=== PATIENT | female | born 1960 | race Caucasian/White ===

== ENCOUNTER 2018-08-06 15:24 | Outpatient (CLI) | payer BC ==
--- NOTE | 2018-08-06 18:13 | BD ---
Exam: DEXA Bone Density 08/06/18 HISTORY: 58-year-old postmenopausal female for screening. Lumbar Spine: BMD (g/cm2) L1 0.722 T-Score: -3.4 L2 0.688 T-Score: -3.1 L3 0.849 T-Score: -2.1 L4 0.748 T-Score: -2.8 L1-L4 0.756 T-Score: -2.6 Left Femoral Neck: 0.629 T-Score: -2.0 Total Proximal Femur: 0.953 T-Score: 0.1 Impression: Osteoporosis. This patient has between a 6 and 7 times increased risk for fracture when compared with young patients with normal bone mineral density. POS: [facility]
== END 2018-08-06 15:25 | disposition home or self-care (01) ==
LOC: BICMAMMO 15:24
PROVIDERS: ATTEND Specialist
DX: Z12.31 Encounter for screening mammogram for malignant neoplasm of breast (principal); Z00.00 Encounter for general adult medical examination without abnormal findings; Z13.820 Encounter for screening for osteoporosis; M81.0 Age-related osteoporosis without current pathological fracture; Z80.3 Family history of malignant neoplasm of breast
CPT/HCPCS: 77063; 77067; 77080

== ENCOUNTER → 2019-01-17 | Day surgery (SDC) | payer OTHER ==
[~2019-01-17] MED LIST: Zoledronic Acid/Mannitol&Water 5 MG in Premix Bag 1 BAG IVPB SCH
[2019-01-17 13:30] VITALS: BP 147/80; TEMP 98.1
== END ==
LOC: ONC/OP 11:00
PROVIDERS: ATTEND Specialist
DX: M81.0 Age-related osteoporosis without current pathological fracture (principal); Z88.6 Allergy status to analgesic agent; Z88.8 Allergy status to other drugs, medicaments and biological substances
CPT/HCPCS: 96374; J3489

== ENCOUNTER 2019-02-04 16:02 | Outpatient (CLI) | payer BC ==
--- NOTE | 2019-02-04 16:16 | RAD ---
XR Chest Pa Lat STANDARD History: Reason For Study Comparison: Cough Findings: Lungs are clear. No pneumothorax or effusion. Cardiac silhouette and mediastinal contours a re within normal limits. Impression: No acute intrathoracic abnormality.
== END 2019-02-04 16:03 | disposition home or self-care (01) ==
LOC: BICRAD 16:02
PROVIDERS: ATTEND Specialist
DX: R05 Cough (principal)
CPT/HCPCS: 71046

== ENCOUNTER 2019-06-30 15:58 | Outpatient (CLI) | payer BC ==
--- NOTE | 2019-06-30 16:28 | RAD ---
EXAM: XR Skull Min 4 View STANDARD PROVIDED CLINICAL HISTORY: Hyperostosis of skull. COMPARISON: CT facial bones on 12/16/2015. FINDINGS: The osseous structures have a normal appearance. No suspicious lytic or sclerotic osseous lesions are seen. No fracture is identified. No exostosis is seen involving the skull. Visualized paranasal sinuses have a normal appearance. IMPRESSION: No acute osseous abnormality.
== END 2019-06-30 15:59 | disposition home or self-care (01) ==
LOC: BICRAD 15:58
PROVIDERS: ATTEND Specialist
DX: M85.2 Hyperostosis of skull (principal)
CPT/HCPCS: 70260

== ENCOUNTER 2019-08-14 16:06 | Outpatient (CLI) | payer BC ==
--- NOTE | 2019-08-14 16:55 | MMO ---
Bilateral MAMMO Bilat Screen [facility]. CLINICAL HISTORY: Patient is 59 years old and is seen for screening. The patient has the following family history of breast cancer: sister, at age 27. The patient has no personal history of cancer. VIEWS: The views performed were: bilateral craniocaudal with tomosynthesis and bilateral mediolateral oblique with tomosynthesis. FILMS COMPARED: The present examination has been compared to prior imaging studies performed at [facility] on 04/30/2012, 09/07/2014, 06/05/2017 and 08/06/2018. This study has been interpreted with the assistance of computer-aided detection. MAMMOGRAM FINDINGS: The breasts are heterogeneously dense, which could obscure a lesion on mammography. There are no suspicious masses, suspicious calcifications, or new areas of architectural distortion. IMPRESSION: THERE IS NO MAMMOGRAPHIC EVIDENCE OF MALIGNANCY. A ROUTINE FOLLOW-UP MAMMOGRAM IN 1 YEAR IS RECOMMENDED. THE RESULTS OF THIS EXAM WERE SENT TO THE PATIENT. ACR BI-RADS Category 1 - Negative MAMMOGRAPHY NOTE: 1. A negative mammogram report should not delay a biopsy if a dominant of clinically suspicious mass is present. 2. Approximately 10% to 15% of breast cancers are not detected by mammography. 3. Adenosis and dense breasts may obscure an underlying neoplasm. Reported by: OPAL WHELAN MD Electonically Signed: [id number]
== END 2019-08-14 16:07 | disposition home or self-care (01) ==
LOC: BICMAMMO 16:06
PROVIDERS: ATTEND Specialist
DX: Z12.31 Encounter for screening mammogram for malignant neoplasm of breast (principal); Z80.3 Family history of malignant neoplasm of breast
CPT/HCPCS: 77063; 77067

== ENCOUNTER 2019-09-04 15:05 | Outpatient (CLI) | payer BC ==
--- NOTE | 2019-09-04 16:06 | RAD ---
FOUR VIEWS LEFT KNEE: 09/04/19 PROVIDED CLINICAL HISTORY: Left knee pain. FINDINGS: Comparison 08/11/14. There is no evidence for fracture or other acute osseous abnormality. Alignment appears anatomic. Summer nt spaces appear preserved. Osteophyte formation is seen about the knee. IMPRESSION: Mild left knee degenerative change. POS: [facility]
== END 2019-09-04 15:06 | disposition home or self-care (01) ==
LOC: BICRAD 15:05
PROVIDERS: ATTEND Specialist
DX: M25.562 Pain in left knee (principal); M17.12 Unilateral primary osteoarthritis, left knee

== ENCOUNTER 2019-10-01 15:32 | Outpatient (CLI) | payer BC ==
--- NOTE | 2019-10-01 16:03 | RAD ---
Left knee 2 views HISTORY: Left knee pain. Injury. FINDINGS: Mild joint space narrowing of the medial compartment. Very mild tricompartmental osteophyto sis. No acute fracture or dislocation. Small amount of fluid distends the suprapatellar bursa on the lateral view. IMPRESSION: Small joint effusion with otherwise very mild osteoarthritic changes.
--- NOTE | 2019-10-01 16:04 | RAD ---
Right knee 2 views HISTORY: Right knee pain. FINDINGS: Mild joint space narrowing medial compartment. Mild tricompartmental osteophytosis. Small a mount of fluid distends the suprapatellar bursa. No aggressive osseous erosions. IMPRESSION: Small joint effusion with otherwise mild osteoarthritic changes.
== END 2019-10-01 15:33 | disposition home or self-care (01) ==
LOC: BICRAD 15:32
PROVIDERS: ATTEND Internal Medicine Rheumatology
DX: M17.0 Bilateral primary osteoarthritis of knee (principal); M25.462 Effusion, left knee; M25.461 Effusion, right knee

== ENCOUNTER 2020-03-08 16:11 | Outpatient (CLI) | payer BC ==
--- NOTE | 2020-03-08 16:46 | BD ---
BONE DENSITOMETRY USING DEXA: Date: 03/08/2020 HISTORY: Osteoporosis. FINDINGS: Lumbar Spine: BMD (g/cm2) L1 0.748 T-Score: -2.2 Z-Score: -1.1 L2 0.772 T-Score: -2.3 Z-Score: -1.1 L3 0.839 T-Score: -2.2 Z-Score: -0.9 L4 0.729 T-Score: -3.0 Z-Score: -1.7 L1-L4 0.772 T-Score: -2.5 Z-Score: -1.2 Femoral Neck: 0.579 T-Score: -2.4 Z-Score: -1.2 Total Femur: 0.910 T-Score: -0.3 Z-Score: 0.6 There has been interval improvement of 2.1% in the bone mineral density of the lumbar spine and a red uction of 4.5% in the bone mineral density of the proximal femur since 08/06/2018. IMPRESSION: Osteoporosis. POS: [facility]
== END 2020-03-08 16:12 | disposition home or self-care (01) ==
LOC: BICRAD 16:11
PROVIDERS: ATTEND Specialist
DX: M81.0 Age-related osteoporosis without current pathological fracture (principal); M85.859 Other specified disorders of bone density and structure, unspecified thigh
CPT/HCPCS: 77080

== ENCOUNTER 2020-09-15 07:44 | Outpatient (CLI) | payer BC ==
--- NOTE | 2020-09-15 08:16 | MMO ---
Bilateral MAMMO Bilat Screen [facility]. CLINICAL HISTORY: Patient is 60 years old and is seen for screening. The patient has the following family history of breast cancer: sister, at age 27. The patient has no personal history of cancer. VIEWS: The views performed were: bilateral craniocaudal with tomosynthesis and bilateral mediolateral oblique with tomosynthesis. FILMS COMPARED: The present examination has been compared to prior imaging studies performed at [facility] on 09/07/2014, 06/05/2017, 08/06/2018 and 08/14/2019. This study has been interpreted with the assistance of computer-aided detection. MAMMOGRAM FINDINGS: There are scattered fibroglandular densities. There are no suspicious masses, suspicious calcifications, or new areas of architectural distortion. IMPRESSION: THERE IS NO MAMMOGRAPHIC EVIDENCE OF MALIGNANCY. A ROUTINE FOLLOW-UP MAMMOGRAM IN 1 YEAR IS RECOMMENDED. THE RESULTS OF THIS EXAM WERE SENT TO THE PATIENT. ACR BI-RADS Category 1 - Negative MAMMOGRAPHY NOTE: 1. A negative mammogram report should not delay a biopsy if a dominant of clinically suspicious mass is present. 2. Approximately 10% to 15% of breast cancers are not detected by mammography. 3. Adenosis and dense breasts may obscure an underlying neoplasm. Reported by: JESSENIA QUINTERO MD Electonically Signed: [id number]
== END 2020-09-15 07:45 | disposition home or self-care (01) ==
LOC: BICMAMMO 07:44
PROVIDERS: ATTEND Specialist
DX: Z12.31 Encounter for screening mammogram for malignant neoplasm of breast (principal); Z80.3 Family history of malignant neoplasm of breast
CPT/HCPCS: 77063; 77067

== ENCOUNTER 2020-12-14 15:43 | Outpatient (CLI) | payer BC | END 2020-12-14 15:44 | disposition home or self-care (01) | LOC: BICRAD 15:43 | PROVIDERS: ATTEND Specialist | DX: R68.84 Jaw pain (principal) | CPT/HCPCS: 70110 ==

== ENCOUNTER 2021-09-21 13:26 | Outpatient (CLI) | payer BC | END 2021-09-21 13:27 | disposition home or self-care (01) | LOC: BICMAMMO 13:26 | PROVIDERS: ATTEND Specialist | DX: Z12.31 Encounter for screening mammogram for malignant neoplasm of breast (principal); M81.0 Age-related osteoporosis without current pathological fracture; M85.89 Other specified disorders of bone density and structure, multiple sites; Z80.3 Family history of malignant neoplasm of breast | CPT/HCPCS: 77063; 77067; 77080 ==

== ENCOUNTER 2021-12-20 23:45 | Emergency (ER) | payer BC ==
[2021-12-21 00:08] LABS: #Basophils 0.1 thou/uL (0.0-0.2); #Eosinphils 0.3 thou/uL (0.0-0.7); #Lymphocytes 2.8 thou/uL (1.20-3.40); #Monocytes 1.4 thou/uL (0.11-0.59); #Neutrophils 7.2 thou/uL (1.40-6.50); %Basophils 0.5 % (0.0-1.0); %Eosinophils 2.8 % (0.0-10.0); %Lymphocytes 23.8 % (21.0-51.0); %Monocytes 11.7 % (0.0-10.0); %Neutrophils 61.2 % (42.0-75.0); Hemoglobin 14.3 g/dL (12.0-16.0); Mean Corpuscular HGB CONC 34.8 g/dL (32.0-36.0); Mean Corpuscular Hemoglobin 31.7 pg (27.0-31.0); Mean Corpuscular Volume 91.1 fL (78.0-98.0); Mean Platelet Volume 6.9 fL (7.4-10.4); Platelet Count 240 thou/uL (130-400); RBC Distribution Width 11.2 % (11.5-14.5); Red Blood Cell (RBC) Count 4.52 mill/uL (4.20-5.40); White Blood Cell (WBC) Count 11.8 thou/uL (4.8-10.8)
[2021-12-21 00:28] LABS: ALT (SGPT) 20 U/L (8-55); AST (SGOT) 17 U/L (5-34); Albumin 4.2 g/dL (3.5-5.0); Alkaline Phosphatase 53 U/L (40-110); Anion Gap 12 mmol/L (10-20); BUN (Urea Nitrogen) 15 mg/dL (9.8-20.1); Bilirubin, Total 0.7 mg/dL (0.2-1.2); Calc. Creatinine Clearance 0 mL/min (70-130); Calcium 9.6 mg/dL (7.8-10.44); Carbon Dioxide 26 mmol/L (22-29); Chloride 104 mmol/L (98-107); Globulin 3.2 g/dL (2.4-3.5); Glucose 112 mg/dL (70-105); Potassium 3.9 mmol/L (3.5-5.1); Protein, Total 7.4 g/dL (6.0-8.3); Sodium 138 mmol/L (136-145)
[2021-12-21 01:38] LABS: Bacteria/HPF 3+ HPF (None Seen); Bilirubin Negative (Negative); Blood, Urine 3+ (Negative); Clarity Extra Turbid (Clear); Glucose, Urine (Dipstick) Normal (Negative); Ketone, Urine Negative (Negative); Leukocyte 500 Leu/uL (Negative); Nitrite 2+ (Negative); Protein, Urine (Dipstick) 300 mg/dL (Neg-Trace); RBC/HPF Greater than 50 HPF (0-3); Specific Gravity, Urine 1.029 (1.002-1.036); Squamous Epithelial None Seen HPF (0-3); Urobilinogen 3 mg/dL (Less than 2); WBC/HPF Greater than 50 HPF (0-3)
[2021-12-21 01:41] LABS: Pregnancy Test - Urine (BHCG) Negative (Negative); Pregu Control Background? CLEAR/WHITE (CLR/WHITE); Pregu Control Bar Appear? YES (CONTROL BAR); Specific Gravity 1.029 (1.002-1.036)
[2021-12-21] MEDS ORDERED: Morphine 4 MG/ML VIAL ONE (01:50)
[2021-12-21] MEDS ORDERED: cefTRIAXone\\ROCEPHIN 2 GM VIAL ONE (01:50)
[2021-12-21] MEDS ORDERED: cefTRIAXone\\ROCEPHIN 1 GM VIAL ONE (02:27)
[2021-12-21] MEDS ORDERED: Iopamidol 370 76% 100 ML VIAL ONE (08:58)
== END 2021-12-21 05:08 | disposition home or self-care (01) ==
LOC: ERS 23:45
DX: N10 Acute pyelonephritis (principal); E78.5 Hyperlipidemia, unspecified; E78.00 Pure hypercholesterolemia, unspecified; E03.9 Hypothyroidism, unspecified
CPT/HCPCS: 36415; 74177; 80053; 81003; 81015; 81025; 85025; 96365; 96375; J0696; J2270

== ENCOUNTER 2022-11-07 15:06 | Outpatient (CLI) | payer BC | END 2022-11-07 15:07 | disposition home or self-care (01) | LOC: BICMAMMO 15:06 | PROVIDERS: ATTEND Specialist | DX: M85.89 Other specified disorders of bone density and structure, multiple sites (principal) | CPT/HCPCS: 77080 ==

== ENCOUNTER 2022-12-21 11:59 | Outpatient (CLI) | payer BC | END 2022-12-21 12:00 | disposition home or self-care (01) | LOC: BICMAMMO 11:59 | PROVIDERS: ATTEND Specialist | DX: Z12.31 Encounter for screening mammogram for malignant neoplasm of breast (principal) | CPT/HCPCS: 77063; 77067 ==

== ENCOUNTER 2025-04-03 15:15 | Outpatient (CLI) | payer BC | END 2025-04-03 15:16 | disposition home or self-care (01) | LOC: BICMAMMO 15:15 | PROVIDERS: ATTEND Specialist | DX: M81.0 Age-related osteoporosis without current pathological fracture (principal); M85.89 Other specified disorders of bone density and structure, multiple sites | CPT/HCPCS: 77080 ==